=== PATIENT | male | born 1980 | race African-American/Black ===

== ENCOUNTER 2023-12-02 01:09 | Emergency (ER) | payer SELFPAY ==
[~2023-12-02] VITALS: Ht 185.4 cm; Wt 95.5 kg
[~2023-12-02 01:09] MED LIST: NOCURR
[2023-12-02 01:25] VITALS: BP 156/110; PULSE 125; RESP 15; TEMP 98.3
== END 2023-12-02 02:04 | disposition left against medical advice (07) ==
LOC: EMS 01:10
DX: F10.129 Alcohol abuse with intoxication, unspecified (principal)
CPT/HCPCS: 99283; Z7502